=== PATIENT | female | born 1995 | race Caucasian/White ===

== ENCOUNTER 2017-12-13 08:26 | Emergency (ER) | payer OTHER ==
[~2017-12-13] VITALS: Ht 157.5 cm; Wt 46.5 kg
[~2017-12-13 08:26] MED LIST: CIPRO500 MG PO; FEOSOL325 MG PO; K-DUR10 ME2 PO; MOTRIN800 MG PO; NOHOMEMEDS; TYLENOL WITH C1 EACH PO
[2017-12-13 09:11] LABS: APPEARANCE TURBID ((CLEAR)); BILIRUBIN NEGATIVE; BLOOD SMALL; COLOR AMBER ((YELLOW)); GLUCOSE (STRIP) NEGATIVE; KETONES NEGATIVE; LEUKOCYTES LARGE; NITRITE NEGATIVE; PROTEIN (STRIP) 100; UROBILINOGEN 0.2 MG/DL (0.2-1.0)
[2017-12-13 09:40] LABS: UCUL ADDED? YES; WHITE BLOOD CELLS TNTC /HPF (0-5)
[2017-12-13] MEDS ORDERED: PYRIDIUM100 MG PO (09:55)
[2017-12-13] MEDS ORDERED: CIPRO500 MG PO (09:55)
[2017-12-13 10:07] VITALS: BP 107/75
== END 2017-12-13 10:08 | disposition home or self-care (01) ==
LOC: EME 08:26
DX: N39.0 Urinary tract infection, site not specified (principal); B96.4 Proteus (mirabilis) (morganii) as the cause of diseases classified elsewhere; N12 Tubulo-interstitial nephritis, not specified as acute or chronic; F17.200 Nicotine dependence, unspecified, uncomplicated
CPT/HCPCS: 81003; 87077; 87086; 87186; 99281; 99283

== ENCOUNTER 2018-04-21 01:29 | Emergency (ER) | payer OTHER ==
[~2018-04-21] VITALS: Ht 157.5 cm; Wt 47.8 kg
[~2018-04-21 01:29] MED LIST changes: +PYRIDIUM100 MG PO
[2018-04-21 01:31] VITALS: BP 115/73
[2018-04-21 04:29] LABS: SOURCE SWAB
[2018-04-21 04:35] LABS: APPEARANCE CLEAR ((CLEAR)); BILIRUBIN NEGATIVE; BLOOD SMALL; COLOR YELLOW ((YELLOW)); GLUCOSE (STRIP) NEGATIVE; KETONES NEGATIVE; LEUKOCYTES LARGE; NITRITE POSITIVE; PROTEIN (STRIP) NEGATIVE; SPECIFIC GRAVITY 1.005 (1.000-1.030); UROBILINOGEN 0.2 MG/DL (0.2-1.0)
[2018-04-21 04:49] LABS: BACTERIA RARE /HPF; EPITHELIAL CELLS RARE /HPF; MUCUS TRACE /LPF; RED BLOOD CELLS 0-5 /HPF (0-5); UCUL ADDED? YES; WHITE BLOOD CELLS 15-20 /HPF (0-5)
[2018-04-21] MEDS ORDERED: KEFLEX500 MG PO (05:08)
[2018-04-21] MEDS ORDERED: MONISTAT 31 EACH VG (05:08)
[2018-04-21] MEDS ORDERED: VALTREX1000 MG PO (05:08)
== END 2018-04-21 05:40 | disposition home or self-care (01) ==
LOC: EME 01:29
PROVIDERS: Physician Assistant
DX: N39.0 Urinary tract infection, site not specified (principal); B37.3 Candidiasis of vulva and vagina; R21 Rash and other nonspecific skin eruption
CPT/HCPCS: 81003; 81025; 87077; 87086; 87186; 87210; 87254; 87491; 87591; 99281; 99285